=== PATIENT | male | born 1930 | race Caucasian/White ===

== ENCOUNTER → 2017-02-27 | Day surgery (SDC) | payer OTHER ==
[~2017-02-27] VITALS: Ht 172.7 cm; Wt 73.8 kg
[~2017-02-27] MED LIST: ACET-1311 PO; ASPI81TA28 PO; ATOR-22 PO; CARV3.122 PO; CMD/25 PO; DOCU100C31 PO; FENTANYL CITRATE INJ 50 MCG/1 ML 2 ML VIAL ONE; FRS/40 PO; GLC/500 PO; INSDGI SC; IPRASOL4 INH; LEVO50TA6 PO; MAGNSUS5 PO; METO25TA3 PO; METO5TAB25 PO; MIDAZOLAM HCL 1 MG/ML 2ML VIAL ONE; MULT-506 PO; NVLGI SC; POTA20TA16 PO; PRED10TA PO; SODI1ENE; TAMS0.4C38 PO; TORS20TA2 PO; dulcolax supp
[2017-02-27 13:00] VITALS: BP 88/65; PULSE 94; TEMP 36.5; O2SAT 96; Ht 172.7 cm; Wt 73.8 kg
--- NOTE | 2017-02-27 13:39 | History & Physical Bridge Note ---
H&P Re-Evaluation Bridge Note: I have examined the patient, reviewed the History & Physical and in the interval since the performance of the History & Physical I have noted the following changes of clinical significance: pt with permanent AF refractory to medications with recurrent acute HF; pt for AVN ablation
--- NOTE | 2017-02-27 13:40 | Procedure Note ---
Pre-Mod Sedation Assessment General Date of Moderate Sedation: Feb 27, 2017. Vital Signs: Vital Signs Past 12 Hours Date Time Temp Pulse Resp B/P Pulse Ox O2 Delivery O2 Flow Rate FiO2 02/27/17 13:00 36.5 94 22 88/65 96 Room Air Review Cardiovascular: + tachycardia, + irregularly irregular Abdomen: soft Lungs: + decreased breath sounds Pre-Sedation Airway Assessment Oral Cavity: WNL Short Thick Neck: No Hx of Sleep Apnea: No Smoking Status: Never Smoker Mallampati Classification: Class II ASA Classification: Class II Procedure Planning Contraindications-for Mod Sed: None Yes Notes The planned sedation has been discussed with the patient and consent obtained. I have identified the patient, determined the appropriateness of sedation and have assessed the patient immediately prior to the procedure. All medicine(s) and interventions are by my order.
--- NOTE | 2017-02-27 15:32 | Procedure Note ---
Post-Mod Sedation Assessment General Date of Moderate Sedation Feb 27, 2017. Vital Signs: Vital Signs Past 12 Hours Date Time Temp Pulse Resp B/P Pulse Ox O2 Delivery O2 Flow Rate FiO2 02/27/17 15:30 75 22 88/66 95 Nasal Cannula 3 02/27/17 15:25 76 22 95/71 95 Nasal Cannula 3 02/27/17 15:20 74 22 96/47 95 Nasal Cannula 3 02/27/17 13:00 36.5 94 22 88/65 96 Room Air Review - Discharge Criteria Vital Signs Stable: Yes Alert/Oriented/Conversant: Yes Returned to Baseline Mental St: Yes Nausea Absent/Minimal: Yes Pain/Discomfort/Absent/Minimal: Yes Normal/Baseline Respirations: Yes Active Bleeding?: No Pt Received D/C Instructions: Yes Prescriptions Given: None Specific Proced. D/C Criteria Distal Pulses Present (Cardiac: Yes Groin site assessed-Card Cath: Yes Voided Prior To Discharge: Yes Discharged Patients Adult Escort/Transportation: Yes
--- NOTE | 2017-02-27 15:34 | [facility] Post Operative Brief Note ---
Immediate Operative Summary Operative Date Feb 27, 2017. Pre-Operative Diagnosis permanent af with rvr refractory to avn blockers, acute on chronic diastolic HF Class III Post-Operative Diagnosis same plus complete heart block Procedure(s) Performed avn ablation Surgeon gillian pereyra Plating Equipment Tender Surgeon(s) none Estimated Blood Loss <5cc Findings none Fluids (cc crystalloids) 50cc Specimens none Drains none Anesthesia 2mg versed and 12.5mcg fentanyl Complication(s) None Disposition laboratory associate holding
--- NOTE | 2017-02-27 15:37 | Discharge Instructions ---
Discharge Instructions Date of Service Feb 27, 2017. Visit Reason for Visit: CHF Discharge Discharge Diagnosis / Problem: permanent atrial fibrillation with rvr, acute on chronic systolic HF, CHB Discharge Goals Goal(s): Improve function Activity Recommendations Activity Limitations: as noted below (no heavy lifting for 1 week) Shower/Bathe: tomorrow Anesthesia . Post Anesthesia Instructions: If you have had General Anesthesia or IV Sedation: * Do not drive today. * Resume driving when surgeon permits. * Do not make important decisions or sign legal documents today. * Call surgeon for: 1. Temperature elevations greater than 101 degrees F. 2. Uncontrollable pain. 3. Excessive bleeding. 4. Persistent nausea and vomiting. 5. Medication intolerance (nausea, vomiting or rash). * For nausea and vomiting use only clear liquids such as: tea, soda, bouillon until nausea subsides, then gradually increase diet as tolerated. * If you have any concerns or questions, call your surgeon's office. If physician is unavailable and it is an emergency, call 911 or go to the nearest emergency room. . Diet Recommendations Recommended Home Diet: resume previous diet Procedures Procedures Performed: avn ablation Pending Studies Studies pending at discharge: no Medical Emergencies . Who to Call and When: Medical Emergencies: If at any time you feel your situation is an emergency, please call 911 immediately. . Non-Emergent Contact Non-Emergency issues call your: [facility] . . "Provider Documentation" section prepared by Leela Breen.
[2017-02-27 16:30] VITALS: BP 103/61; PULSE 75; O2SAT 95
--- NOTE | 2017-02-27 17:47 | OPERATIVE REPORT ---
DATE OF OPERATION: 02/27/2017 PREOPERATIVE DIAGNOSES: Permanent atrial fibrillation with rapid ventricular response refractory to atrioventricular joya blockers, acute on chronic systolic congestive heart failure, decreased biventricular pacing secondary to atrial flutter. POSTOPERATIVE DIAGNOSES: Same in addition to complete heart block. PROCEDURE: AV joya ablation. SURGEON: Dr. Leela Breen. COREMAKER HELPER: None. ANESTHESIA: Monitored conscious sedation given under my supervision, administered by Hernan Zambrano. Start time 14:07, end time 15:20. 2 mg of Versed and 12.5 mcg of fentanyl. IV FLUIDS: 50 mL BLOOD LOSS: Less than 5 mL COMPLICATIONS: None. CONDITION: Stable. URINE OUTPUT: None. SPECIMENS: None. FINDINGS: None. DRAINS: None. INDICATIONS: This is an 87-year-old gentleman who has a past medical history significant for nonischemic cardiomyopathy in which he underwent a biventricular ICD about a year ago; acute on chronic systolic congestive heart failure, [place] Heart Association class 3; diabetes, pulmonary toxicity, hypotension, chronic kidney disease stage III, and chronic kidney disease stage III. The patient was found to be in atrial fibrillation back in September/October of 2016. He has been difficult to treat from rate perspective due to his hypotension and due to the aFib and the rate. He has had less biventricular pacing and therefore has had more frequent acute heart failure exacerbations. For this reason, he has been recommended an AV joya ablation. CONSENT: Consent was obtained prior to the patient going into the electrophysiology lab. The patient was explained fundus, benefits, alternatives to the procedure. Risks include but not limited to sudden cardiac , cardiac arrhythmias, cerebrovascular accident, myocardial infarction, injury to the blood vessels, chamber of the heart, bleeding and infection. The patient understood these risks and agreed to the procedure as planned. Informed consent obtained. DESCRIPTION OF THE PROCEDURE: The patient was brought into the electrophysiology lab in fasting state. He was connected to continuous cardiac monitoring. Timeout was performed to ensure patient's identity and procedure correctly. The patient was prepped and draped over the bilateral groins in a normal surgical standard fashion. Moderate conscious sedation was given throughout the procedure for patient's comfort level. [place] precautions were maintained throughout the procedure. The biventricular device was interrogated and reprogrammed to VVI 30 and the tachy therapies were turned off. 10 mL of 1% lidocaine were given in the right femoral groin. Using modified Seldinger technique, venous access was obtained through the right femoral vein and an SR0 sheath was inserted. We did fluoro the defibrillator leads prior to putting the SR0 sheath up into the heart. An 8 mm standard curve Blazer ablation catheter was positioned up into the His bundle region and a series of radiofrequency corrales with temperatures reaching 60 degrees and then good adequate impedance and power were administered with 1 minute duration x4. The patient then had a 30-minute waiting period. During this 30-minute waiting period, we increased his base rate to 70. After 30-minute waiting period, he still maintains complete heart block down to 30 beats per minute with complete biventricular pacing. We reprogrammed his device after the procedure and reinterrogated it with the following findings: 1. Right ventricular: No R waves. There were some PVCs and it was measuring PVCs at 3.9 millivolts, impedance 323 ohms, threshold 0.625 volts at 0.4 milliseconds. The coil impedance was 54 ohms. 2. Left ventricle: LV2-LV3 0.5 volts at 0.4 milliseconds and 437 ohms. The device was programmed to VVIR 75/110. The sheath was pulled and manual compression was used to create hemostasis. FINAL IMPRESSION: Successful atrioventricular joya ablation with achievement of complete heart block. PLAN: Monitor patient post-sedation. He will be transferred back to [facility] where he was initially transferred from to have the procedure. In [facility], will continue IV diuresis as necessary and appropriate discharge when necessary. He should follow up in our office with me in 1 month's time but will probably need a closer heart failure follow up upon [facility] discharge as well. He is not to do any heavy lifting or squatting for 1 week. I attest to the content of the Intraoperative Record and any orders documented therein. Any exceptio ns are noted below.
== END | disposition home or self-care (01) ==
LOC: C.EP 12:26
PROVIDERS: ATTEND Internal Medicine
DX: I48.2 Chronic atrial fibrillation (principal); I44.2 Atrioventricular block, complete; I48.92 Unspecified atrial flutter; I50.23 Acute on chronic systolic (congestive) heart failure; I42.8 Other cardiomyopathies; E11.9 Type 2 diabetes mellitus without complications; N18.3 Chronic kidney disease, stage 3 (moderate); I95.9 Hypotension, unspecified